=== PATIENT | female | born 2000 | race Caucasian/White ===

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

== ENCOUNTER 2021-05-21 09:14 | Outpatient (RCR) | payer OTHER, SELFPAY ==
--- NOTE | 2021-05-21 09:04 | BH.SGPN.GN ---
Behaviors/Verbalizations/Mental Status: []Client alert and oriented, casually dressed and groomed. Eye contact good. Motor activity appropriate. Speech within normal limits. Affect congruent, mood anxious and depressed. Thoughts linear, logical, no signs of hallucinations or delusions. Reviewed client?s symptom tracker, no risk for suicidal ideation, plan, or intent as of 05/21/21 Narrative Note: []Client first day of treatment. Responded well to session, attentive, providing supportive feedback and suggestions, and willing to process with group. Client reports feeling nervous about the group environment but is optimistic. Shared wanting to work on improving emotion regulation skills, better understanding her own mental health, and reducing anxiety. Discussed difficulties in feeling supported and understood by her supports. Appeared to benefit from group support and encouragement. Will continue IOP tx to prevent decompensation, improve mood stability, and promote healthy change behaviors.
--- NOTE | 2021-05-21 10:10 | BH.SGPN.GN ---
Behaviors/Verbalizations/Mental Status: [] Eye contact is good. Motor activity is appropriate. Appearance is casual. Speech is Appropriate. Mood is anxious. Affect is congruent. Thoughts are linear and logical. No evidence of psychosis. Client Response/Progress/Benefit: [] Pt was an active participant in group discussion and activity. Attentive during psychoeducation. Provided feedback and insight. Along with group members pt provided insight on definition and benefits of self-care. Benefits that the group was able to identify included; improves relationships, decreases anger and burnout, gives one a sense of identity, improves communication, increases awareness of values/needs, can rejuvenate oneself, helps one be more engaged, improves physical health, and can improve productivity. Pt participated in activity and was able to make connect between experiential group task and self-care. Group processed the activity and identified consequences of neglecting self-care which can include; hospitalization, suicide attempts, lose supports, and poor overall functioning. Benefited from group by increasing awareness of benefits to self-care and consequences of neglecting self-care. Will continue in IOP to prevent decompensation, increase healthy coping, and improve functioning to return to work. Narrative Note: []
--- NOTE | 2021-05-21 11:54 | BH.MDN_ITS ---
Multi-Disciplinary Note - Note 30-min Individual Time Started:: 11:10 Date: 05/21/21 Purpose of session/treatment goals addressed:: The purpose of this session was to gather information on client's current stressors, symptoms, and treatment goals. Another goal was to build rapport and provide psychoeducation on Borderline Personality Disorder. Eye Contact:: Good - tearful throughout discussion Motor Activity:: Appropriate Appearance:: Casual Speech:: Appropriate Mood:: Anxious, Depressed Affect:: Full Thoughts:: Linear, Logical, No evidence of hallucinations/delusions noted Staff Interventions:: Therapist used active listening and open-ended questions to explore client's current stressors, symptoms, history, and treatment goals. Therapist used strengths perspective to build rapport and aid client in identifying resilience factors. Therapist provided brief psychoeducation on Borderline Personality Disorder and the 5 symptom groups (unstable behavior, unstable emotions, unstable relationships, unstable sense of identity and awareness problems). Client Response:: Client responded well to session, open to meeting with therapist. Client reports enjoying group so far and finds the group environment to be supportive but shared struggling with some anxiety about sharing in the group environment. Discussed seeking IOP level of care following the recommendation of her outpatient psychiatrist due to limited improvements with traditional outpatient therapy. Client described not knowing exactly what her primary stressors are but that she has been struggling with her mental and physical health for much of her life. Recently received an MRI for chronic neck/muscle pain which was inconclusive and client reports has been an ongoing frustration. Notes first receiving counseling as a child and has been in counseling for the past 8 years, currently working with a therapist at [facility] in [place] and Dr. Polk through [place] [id number] for outpatient psychiatry. Denies remembering why she first went to counseling but has had issues with depression and anxiety for as long as she can remember. Described lifelong issues with poor self-esteem, relationship instability, difficulties managing her emotions, and feelings of numbness/disconnect. Shared recently receiving a diagnosis of Borderline Personality Disorder and has started to look up what this means but has little understanding of what this means. Receptive of s pending the remainder of session on psychoeducation about Borderline Personality Disorder and the reviewing the 5 common symptom groups (unstable behavior, unstable emotions, unstable relationships, unstable sense of identity and awareness problems). Client shared insights regarding which symptoms she most commonly relates to and how these have impacted her life/mental health. Receptive of further exploring each area and describing her own experiences/symptomology within each of the 5 groups. Risks/Concerns:: Client denies any active suicidal ideations, plan, or intent as of 05/21/21. Client does have a self-harming hx, though denies any recent self- harming behaviors or urges. Reports ability to maintain safety. Protective factors noted. Future oriented. Progress Toward Goals/Plan:: Client reports enjoying the IOP program so far and discussed connecting with materials she is learning. Engaging well in IOP tx, though reports anxiety about sharing personal information in group though is open to challenging herself to more openly engage. Client first day of IOP tx, so no significant progress noted. Client endorses depressive symptoms, mood swings, worthlessness, passive SI, difficulties connecting with others, crying spells, lack of purpose, and hopelessness. Anxiety issues include panic attacks, ruminating thoughts, fear of being alone or abandoned, and reassurance seeking within relationships. Client would like to work on improving her emotion regulation, relationship with self, learn coping skills, increase understanding of BPD, and better manage anxiety. Client will continue IOP tx to prevent decompensation, improve mood stability, and learn healthy coping skills. Time Stopped:: 11:45
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
--- NOTE | 2021-05-22 11:05 | BH.SGPN.GN ---
Behaviors/Verbalizations/Mental Status: []Eye contact is fair. Alert and oriented. Motor activity is appropriate. Appearance is casual. grooming is appropriate. Speech is Appropriate. Mood is anxious. Affect is congruent. Thoughts are linear and logical. No evidence of psychosis or hallucinations. Client Response/Progress/Benefit: []Client was engaged during discussion, did well to complete activity and process with the group. Client was willing to complete the worksheet in which she was challenged to develop a personal SMART goal. Client chose the goal to finish her book about borderline personality disorder. Client stated this will benefit her by helping her understand her new diagnosis better. Client identified her barriers which included: lack of motivation and the information from the book being too much to handle. Client receptive to identifying solutions for these barriers and willing to begin working on this goal. Benefited from this group by developing a short-term SMART goal related to mental health. Will continue IOP tx to improve emotion regulation, challenge negative thoughts and prevent decompensation. Narrative Note: []
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
--- NOTE | 2021-05-23 10:07 | BH.SGPN.GN ---
Behaviors/Verbalizations/Mental Status: []Client alert and oriented, casually dressed and groomed. Eye contact good. Motor activity appropriate. Speech within normal limits. Affect congruent, mood anxious and depressed. Thoughts linear, logical, no signs of hallucinations or delusions. Client Response/Progress/Benefit: []Pt was well engaged in group AEB taking notes, listening attentively, and providing input throughout. Attentive during psychoeducation and discussed the importance of goal-setting with the group. Pt indicated ?the more you recognize successes along the way the more likely you are to reach your end goal?, noting she personally struggles with accomplishing goals if she does not recognize small areas of progress. Group identified potential benefits of having goals include: they motivate, increase self-esteem, and are needed to have progress, help make changes when things aren?t working, create structure, and provide a sense of purpose. Group also worked together to identify barriers to goal-setting which included; negative self-talk, lack of direction, unrealistic or too broad of goals, and past negative experiences. Pt identified personal barrier to include not having a specific plan for working towards personal goals. Benefited from increased awareness of benefits and barriers to goal-setting. Pt will continue in IOP to prevent decompensation, learn healthy coping skills, and improve daily functioning. Narrative Note: []
[2021-05-23 10:45] VITALS: BP 146/95; PULSE 92
--- NOTE | 2021-05-23 11:05 | BH.SGPN.GN ---
Behaviors/Verbalizations/Mental Status: []Eye contact is fair. Alert and oriented. Motor activity is appropriate. Appearance is casual. grooming is appropriate. Speech is Appropriate. Mood is dysthymic. Affect is constricted. Thoughts are linear and logical. No evidence of psychosis or hallucinations. Client Response/Progress/Benefit: []Client was engaged during discussion, did well to complete activity and process with the group. Client was willing to complete the worksheet in which was challenged to develop a personal SMART goal. Client was able to create a short term goal that was mental health focused and focused on what would help improve social supports. Client worked on identifying potential barriers that could prevent her from accomplishing identified goal. Accepted feedback and support from others when identifying potential solutions to the barriers. Benefited from this group by developing a short-term SMART goal related to mental health. Will continue IOP tx to improve emotion regulation, improve interpersonal relationship skills and prevent decompensation.
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
--- NOTE | 2021-05-23 11:52 | BH.DR.ITP ---
Initial Treatment Plan Patient Information Visit Information: ADMISSION DATE: EXPECTED LOS: 4-6 weeks Problems/Symptoms Problem #1:: Depression Symptom:: Sadness, lack of motivation, hopelessness, passive thoughts of , fatigue, decreased concentration, low energy Problem #2:: Anxiety Symptom:: Worry, rumination, panic attacks
--- NOTE | 2021-05-25 09:00 | BH.SGPN.GN ---
Behaviors/Verbalizations/Mental Status: [] Eye contact is good. Motor activity is appropriate. Appearance is casual. Speech is Appropriate. Mood is depressed/irritable. Affect is congruent. Thoughts are linear and logical. No evidence of psychosis. Reviewed daily check in sheet and no reports of suicidal ideations or intent. Client Response/Progress/Benefit: [] Pt was an active participant in group discussion on positive psychology. Attentive. Provided appropriate feedback. Emotion for today is relieved. Symptom tracker noted 3/5 for depression, anxiety, panic, and irritability. Mental health win is staying on track. Utilized opposite action as she reports continued depression however desire to not attend IOP today however utilized opposite action. Reported several stressors today and is focusing and ruminating on the negatives and how bad certain events will be. Group provided feedback and pt was able to reframe which was beneficial. Reports being more depressed this week due to increased responsibilities with her job and IOP. Limited progress noted however is utilizing skills and can reframe when prompted. Benefited from group support, encouragement, and support. Will continue in IOP to maintain safety, increaser healthy coping, improve functioning to return to full-time job/school. Narrative Note: []
--- NOTE | 2021-05-25 10:03 | BH.SGPN.GN ---
Behaviors/Verbalizations/Mental Status: []Client alert and oriented, neatly dressed and groomed. Eye contact good. Motor activity restless. Speech within normal limits. Affect constricted, mood anxious. Thoughts linear, logical, no signs of hallucinations or delusions. Client Response/Progress/Benefit: []Client engaged in session AEB taking notes and contributing to discussion. Client shared connecting with the importance of setting boundaries, but shared that boundary setting is ?really hard for me because I really don?t know who I am.? Client shared she struggles with fear of abandonment and felt like ?I was always striving to please my parents.? Client assisted group with identifying benefits of setting boundaries such as improved relationships, reduced anxiety, and increased self-esteem. Listened during psychoeducation on different types of boundaries. Client seemed to benefit from increased awareness of how boundaries impact mental health and the different types of boundaries there are. Progress noted in client?s consistent attendance. Will continue IOP tx to prevent decompensation, improve emotional regulation skills, and improve functioning. Narrative Note: []
--- NOTE | 2021-05-25 11:12 | BH.SGPN.GN ---
Behaviors/Verbalizations/Mental Status: [] Client alert and oriented, casually dressed and appropriately groomed. Eye contact good. Motor activity appropriate. Speech within normal limits. Affect congruent, mood dysthymic, anxious. Thoughts linear and intact. no signs of delusions or hallucinations. Client Response/Progress/Benefit: [] Client responded well to session AEB listening attentively to peers and providing input throughout. Client completed the boundary self-assessment activity and processed within their small group, noted struggling with inconsistent boundaries in various areas of her life. Client was attentive and contributed during psychoeducation on the different boundary styles. Client stated that poor communication and difficulties in respecting other?s emotional boundaries via not trusting when they say things like ?I care about you? has caused relationship tension and increased conflict in the past. Participated in group discussion brainstorming various strategies for improving healthy personal boundaries. Client identified wanting to improve her communication and consistency of boundaries with supports. Shared this may help her to be more receptive of help and improve relationships in the past. Will continue IOP tx to continue to improve healthy coping mechanisms, improve mood stability, and prevent decompensation. Narrative Note: []
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
--- NOTE | 2021-06-01 09:00 | BH.SGPN.GN ---
Behaviors/Verbalizations/Mental Status: [] Eye contact is good. Motor activity is appropriate. Appearance is casual. Speech is Appropriate. Mood is depressed. Affect is flat. Thoughts are linear and logical. No evidence of psychosis. Reviewed daily check in sheet and no reports of suicidal ideations or intent. Client Response/Progress/Benefit: [] Pt was an active participant in group discussion. Attentive. Provided appropriate feedback. Daily symptom tracker notes 12/15 for depression and anxiety. Mental health win was showing up for IOP today. Reports that she is struggling with getting to IOP stating that her mood and motivation is erratic. Feels that she is not learning anything new and rather just wants a quick solution to her problems. Group challenged her thinking and encouraged patience. Pt reports that her BF continues to motivate her to come to IOP as he feels that it has made a difference. She discussed other psychosocial stressors and her challenges with taking action on her mental health. Believes that she knows all the skills and what to do however does not follow through when she is struggling. Progress noted in regards to insight and awareness. Beneifted from group support, encouragement, and feedback. Will continue in IOP to maintain safety, stabilize mood, and increase healthy coping skills. Narrative Note: []
--- NOTE | 2021-06-01 10:10 | BH.SGPN.GN ---
Behaviors/Verbalizations/Mental Status: []Client alert and oriented, casually dressed and groomed. Eye contact good. Motor activity appropriate. Speech within normal limits. Affect flat, mood dysthymic. Thoughts linear, logical, no signs of hallucinations or delusions. Client Response/Progress/Benefit: []Client responded well to session, attentive and participating in discussion. Participated in discussion of things that can keep people feeling trapped or stuck in life including; avoidance, self-doubt, unhealthy coping skills, inconsistent boundaries, and placing too much value on others? opinions. Group discussed the connection between thoughts, emotions, and behaviors as well as how negative thinking can keep a person stuck. Client attentive during psychoeducation on maintenance cycles. Client able to identify negative thoughts that have kept client stuck which included ?if I go back to work I?ll have a spiral, if I go to school I?ll fail and waste money, and I don?t know how to make friends.? Appeared to benefit from gaining awareness of how negative thoughts reinforce mental health symptoms and keep people stuck. Will continue IOP tx to prevent decompensation, increase emotional regulation skills, and combat distortions. Narrative Note: []
--- NOTE | 2021-06-01 11:12 | BH.SGPN.GN ---
Behaviors/Verbalizations/Mental Status: []Client alert and oriented, casually dressed and groomed. Eye contact good. Motor activity appropriate. Speech within normal limits. Affect congruent, mood anxious and dysthymic. Thoughts linear, logical, no signs of hallucinations or delusions. Client Response/Progress/Benefit: []Client responded well to session, contributing to discussion and providing supportive feedback. Client appeared to connect with maintenance cycles and recognized how negative thinking can keep a person stuck. Shared that negative thinking has prevented client from trusting in her own decision making skills and led to over-relying on others for reassurance in the past. Client identified a negative thought that has kept her stuck. Client's thought was I can?t handle going back to school because I don?t know what I want to do. Client able to connect how this thought maintains anxiety and depressive cycles, reinforces poor self-esteem, and increases resentment towards others. Client reported when she thinks this way, she ends up not putting herself out there and doesn?t make decisions for herself as a result. Client worked to reframe the thought by finding more rational, realistic ways to look at the thoughts and then processed within the small group setting. Shared she could instead try saying I have a general idea of what I like and can look into different classes exploring those things. Client shared this thought would improve mental health because it would help client feel more confident and accomplished as a result. Client appeared to benefit from practicing challenging negative thinking. Will continue IOP tx to maintain gains, continue to improve mood stability, and continue to improve thought challenging. Narrative Note: []
--- NOTE | 2021-06-05 09:05 | BH.SGPN.GN ---
Behaviors/Verbalizations/Mental Status: [] Eye contact is good. Motor activity is appropriate. Appearance is casual. Speech is Appropriate. Mood is depressed/irritable. Affect is congruent. Thoughts are linear and logical. No evidence of psychosis. Reviewed daily check in sheet and no reports of suicidal ideations or intent. Client Response/Progress/Benefit: [] Pt was an active participant in group discussion. Attentive. Provided appropriate feedback. Daily symptom tracker notes 4/5 for anxiety and 2/5 for depression. Emotion for today is frustrated. Identified several situational stressors which are impacting her mood and thoughts. Reports hard time letting things go. 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 This led to a discussion with parents in which she believed they were criticizing her for cancelling practice. Feel like I'm not making anyone happy. Crying spells. Reports that she freaked out on one occasion referred to a panic type attack. Struggling with utilizing skills consistently as she does not believe skills are effective. Limited progress noted. Difficulty time communicating needs to support. Beneifted from group support, encouragement, and feedback. Will continue in IOP to maintain safety, increase health coping skills, and prevent decompensation. Narrative Note: []
--- NOTE | 2021-06-05 10:10 | BH.SGPN.GN ---
Behaviors/Verbalizations/Mental Status: []Client alert and oriented, casually dressed and groomed. Eye contact good. Motor activity appropriate. Speech within normal limits. Affect congruent, mood euthymic. Thoughts linear, logical, no signs of hallucinations or delusions Client Response/Progress/Benefit: []Pt was an attentive participant and actively engaged throughout group discussion and activity. Attentive during psychoeducation and taking notes. Reflected connecting with topic of personal pitfalls and how they can impede mental health treatment progress. Pt and peers also discussed reasons why overcoming pitfalls is so challenging. Pt stated, ?I overthink everything, so I sometimes make things harder for myself.? During experiential activity pt along with peers identified several pitfalls from the activity that are also associated with mental health which included: lack of awareness, poor communication, wanting to give up, and emotional reactivity. Pt reported the activity helped her realize the importance of developing patience. Benefited from group by increasing awareness of pitfalls which can impact mental health. Pt will continue in IOP tx to promote emotional regulation skills, reduce negative thinking patterns, and improve distress tolerance skills. Narrative Note: []
--- NOTE | 2021-06-05 11:10 | BH.SGPN.GN ---
Behaviors/Verbalizations/Mental Status: []Client alert and oriented, casually dressed and groomed. Eye contact good. Motor activity appropriate. Speech within normal limits. Affect congruent, mood agitated and euthymic. Thoughts linear, logical, no signs of hallucinations or delusions. Client Response/Progress/Benefit: []Client receptive of session, engaged throughout AEB client actively participating in challenge activity, as well as listening and contributing to discussion. Taking notes throughout processing portions of session and reflected that the value she places on other?s opinions of her has continued to serve as a barrier in managing her own mental health symptoms. Shared this is something she has been struggling with for much of her life. Client completed worksheet identifying personal pitfalls impacting mental health progress. Client identified the following pitfalls: unhealthy support, communication, poor boundaries, negative self-talk, and giving up easily. Group discussed different coping skills to help manage or prevent from falling into pitfalls. Client expressed plans to work on challenging herself to take a step away from the problem when feeling overwhelmed rather than continuing to force herself to continue to be unnecessarily exposed something she?s overwhelmed by. Appeared to benefit from identifying personal pitfalls and strategies to overcome these pitfalls. Will continue IOP tx to prevent decompensation, improve consistent application of healthy coping skills, and maintain mood stability. Narrative Note: []
--- NOTE | 2021-06-06 09:05 | BH.SGPN.GN ---
Behaviors/Verbalizations/Mental Status: [] Pt eye contact good, casually dressed, motor activity appropriate, speech normal rate and tone, mood euthymic, congruent affect, thoughts linear and intact, no evidence of delusions or hallucinations. Reviewed client?s symptom tracker, no signs of suicidal ideation, plan, or intent as of today. Client Response/Progress/Benefit: []Pt responded well to session AEB by listening to others and sharing thoughts and feelings. Pt reported mental health positive as going to lunch with her best friend yesterday. Pt stated additional positives as completing apartment application. Pt reported she has been working on slowing down by not taking on too much. Pt reported stressor as wanting to figure out how to be less reactive. Pt stated she gets frustrated with herself when the littlest thing results in her being reactive. Seemed to benefit from input and support from others. Provided positive feedback to peers. Pt showing good insight but struggles with follow through of skills. Pt to continue IOP to improve emotional regulation, challenge distorted thoughts and prevent decompensation. Narrative Note: []
--- NOTE | 2021-06-06 10:16 | BH.SGPN.GN ---
Behaviors/Verbalizations/Mental Status: []Client alert and oriented, casually dressed and groomed. Eye contact good. Motor activity appropriate. Speech within normal limits. Affect congruent, mood euthymic. Thoughts linear, logical, no signs of hallucinations or delusions. Client Response/Progress/Benefit: []Pt was an active participant AEB taking notes and providing input throughout group discussion, as well as completed anger worksheet. Group worked together to define anger and discussed the ways anger can impact one internally and externally. Pt nodding in connection that anger can lead to damaged relationships if not expressed in healthy ways, discussed that unhealthy anger expressions have caused tension in her relationship with her mother on various occasions. Completed the iceberg exercise and identified emotions that tend to ?live under the surface? of pt?s own anger include: mistrust, loss of control, feeling over-stimulated, pain, being wrong, loneliness, and feeling vulnerable. Pt also gained awareness of their typical responses to anger which included: shutting down, crying, avoiding and isolating, self-harming, and getting more defensive. Benefited from group by increasing understanding of the impact of anger on mental health. Recommended continued tx to continue to improve emotion regulation skills, prevent decompensation, and continue to promote healthy communication with her supports. Narrative Note: []
--- NOTE | 2021-06-06 11:20 | BH.SGPN.GN ---
Behaviors/Verbalizations/Mental Status: []Client alert and oriented, casually dressed and groomed. Eye contact good. Motor activity appropriate. Speech within normal limits. Affect congruent, mood euthymic. Thoughts linear, logical, no signs of hallucinations or delusions. Client Response/Progress/Benefit: []Pt was engaged throughout AEB participating in discussion and taking notes. Pt did well to lead his group using assertive communication and receiving feedback. Contributed as group brainstormed healthy coping skills for better managing anger which included: deep breathing, counting, exercise, DDD, and earthing. Pt also gained awareness of costs of unmanaged anger. Pt reported she has gained awareness that feeling unprepared and impatience often leads to anger for pt. Pt appeared to benefit from identifying different techniques to manage anger as well as gaining awareness of the costs of anger. Pt selected earthing to better manage anger. Will continue IOP tx to increase application of healthy coping skills and further improve distress tolerance skills. Narrative Note: []
--- NOTE | 2021-06-08 09:00 | BH.SGPN.GN ---
Behaviors/Verbalizations/Mental Status: [] Eye contact is good. Motor activity is appropriate. Appearance is casual. Speech is Appropriate. Mood is depressed. Affect is flat. Thoughts are linear and logical. No evidence of psychosis. Reviewed daily check in sheet and no reports of suicidal ideations or intent. Client Response/Progress/Benefit: [] Pt was an active participant in group discussion. Attentive. Daily symptom tracker notes 01/15 for anxiety. Emotion for today is feeling down. Mental health wins were reported to be self-care and setting boundaries. She reports that she cried and freaked out yesterday and shared this was related to a trauma trigger. She discussed her trauma with the group who was supportive provided empathy and feedback. Often blames herself for her past trauma which impacts current mental health. Benefited from group support, encouragement, and feedback. Will continue in IOP to prevent decompensation, increase healthy coping, and to improve functioning to return to work. Narrative Note: []
--- NOTE | 2021-06-08 10:05 | BH.SGPN.GN ---
Behaviors/Verbalizations/Mental Status: []Eye contact is good. Motor activity is appropriate. Appearance is casual. Speech is Appropriate. Mood is agitated. Affect is constricted. Thoughts are linear and logical. No evidence of psychosis. Client Response/Progress/Benefit: []Pt was an active participant in group discussion AEB taking notes and providing input throughout. Attentive during psychoeducation reviewing internal and external obstacles and provided examples throughout. Participated in the reflection activity in which clients tio pictures depicting their current and desired reality and shared with the group. Pt described her current reality as ?not knowing how to let go of fear.? Pt reports her desired reality is feeling calm, having a purpose, and knowing her importance. Pt also reflected on strengths she has that will help pt get to her desired reality such as self-awareness. Benefited from group by increasing current awareness and expectations for progress. Will continue IOP tx to increase application of healthy coping skills and to create health habits that will help pt create positive core beliefs. Narrative Note: []
--- NOTE | 2021-06-08 11:10 | BH.SGPN.GN ---
Behaviors/Verbalizations/Mental Status: []Client alert and oriented, casually dressed and groomed. Eye contact good. Motor activity appropriate. Speech within normal limits. Affect congruent. Mood anxious. Thoughts linear, logical, no signs of hallucinations or delusions. Client Response/Progress/Benefit: []Client engaged during activity and provided ideas on how to cope with internal barriers that keep clients stuck from moving towards goals. Client identified personal barriers to desire reality include: not letting go of emotions, allow others emotions to impact her own emotions, being afraid to let herself heal, and not able to identify what she needs to do to get better. Benefited from group by identifying obstacles and solutions to desired reality. Will continue IOP tx to prevent decompensation, improve emotion regulation and challenge distorted thoughts. Narrative Note: []
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
--- NOTE | 2021-06-11 09:05 | BH.SGPN.GN ---
Behaviors/Verbalizations/Mental Status: [] Eye contact is good. Motor activity is appropriate. Appearance is casual. Speech is Appropriate. Mood is anxious/irritable. Affect is congruent. Thoughts are linear and logical. No evidence of psychosis. Reviewed daily check in sheet and no reports of suicidal ideations or intent. Client Response/Progress/Benefit: [] Pt was an active participant in group discussion. Attentive. Provided appropriate feedback. Daily symptom tracker notes 12/15 for depression and anxiety. Emotion for today is worried,confused,frustrated. Shared several psychosocial stressors including decision on returning to work and moving into an apartment with BF. Mental health wins include utilizing opposite action and working through a very chaotic feelings and emotion over the weekend. She is ruminating on several situational stressors and conflict with parents. Reports inconsistent work in the past due in large part to her mental health. Insight and awareness of how work impacts mental health. She appears motivated to obtain a more consistent job however believes that due to her past she is destined to fail. Group challenged and reframed this thought. Group offered feedback and suggestions. Benefited from group support, encouragement, and feedback. Will continue in [facility] to maintain safety, increase healthy coping, and prevent decompensation. Narrative Note: []
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
--- NOTE | 2021-06-11 11:20 | BH.SGPN.GN ---
Behaviors/Verbalizations/Mental Status: []Client alert and oriented, casually dressed and groomed. Eye contact fair. Motor activity WNL. Speech within normal limits. Affect congurent, mood dysthymic. Thoughts linear, logical, no signs of hallucinations or delusions. Client Response/Progress/Benefit: []Client engaged in session AEB client listening attentively to peers and providing input. Attentive during psychoeducation on 4 zones of regulation (blue, green, yellow and red). Client able to identify feelings and behaviors for each zone. Client identified coping skills one can use to support self in each zone. Client stated belief that she jumps from one zone to another. Client stated this results in her constantly being dysregulated and difficulty being productive. Benefited from increased education on zones of regulation or stages of alertness for emotions and healthy coping skills to use for each zone. Will continue IOP tx to improve emotion regulation, improve daily functioning and prevent decompensation.
== END 2021-06-12 23:59 ==
LOC: BHIOP 09:14
PROVIDERS: PCP Pediatrics; Visit Provider Psychiatry & Neurology Psychiatry
DX: F33.2 Major depressive disorder, recurrent severe without psychotic features (principal); F34.1 Dysthymic disorder; F60.3 Borderline personality disorder; F43.10 Post-traumatic stress disorder, unspecified; G47.419 Narcolepsy without cataplexy; Z79.899 Other long term (current) drug therapy
CPT/HCPCS: S9480; 90832; 90834; 90837; 90853

== ENCOUNTER 2021-06-13 08:25 | Outpatient (RCR) | payer OTHER, SELFPAY ==
[2021-06-13 00:43] VITALS: BP 146/95; PULSE 92
--- NOTE | 2021-06-13 09:00 | BH.SGPN.GN ---
Behaviors/Verbalizations/Mental Status: []Eye contact is good. Motor activity is appropriate. Appearance is casual. Speech is Appropriate. Mood is anxious. Affect is congruent. Thoughts are linear and logical. No evidence of psychosis. Reviewed daily check in sheet and no reports of suicidal ideations or intent. Client Response/Progress/Benefit: []Pt responded well to session AEB pt listening attentively to other and sharing thoughts with group. Pt indicatesd3/5 for depression on symptom tracker which is the same as on Friday of this week. Pt indicated slight increase in anxiety from a 3/5 on Friday to a 4/5 today. 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 Pt stated uncertainty if the position would be good for her since she doesn't like crowds and loud noises. Pt indicated slight decrease in agitation and decrease in self-harm behaviors. Pt reporting her ability to function has improved. Pt to continue IOP to continue use of healthy coping, improve emotional regulation and prevent decompensation. Narrative Note: []
--- NOTE | 2021-06-13 10:10 | BH.SGPN.GN ---
Behaviors/Verbalizations/Mental Status: [] Eye contact is good. Motor activity is appropriate. Appearance is casual. Speech is Appropriate. Mood is anxious/irritable. Affect is congruent. Thoughts are linear and logical. No evidence of psychosis. Client Response/Progress/Benefit: [] Pt was an active participant in group discussion and activity. Attentive during psychoeducation on coping skills. Pt along with peers worked together to identify unhealthy coping skills such as; avoidance, sleep, substances, isolation, shopping, self-sabotage, not taking prescribed medications, and self-harm. Group was able to identify why people use unhealthy coping skills such as; easy, comfortable, work in the short-term, perceive them as quick fix, and its harder to use healthy coping skills. Pt was able to make connection between the activity (tower building) and the importance of having a strong base/foundation of both internal and external coping skills. Benefited from increased understanding of unhealthy coping skills and the need for developing healthy interna and external coping skills. Pt will continue in IOP to prevent decompensation, increase health coping and decision-making skills, and improve functioning to return to work. Narrative Note: []
--- NOTE | 2021-06-13 11:10 | BH.SGPN.GN ---
Behaviors/Verbalizations/Mental Status: []Client alert and oriented, casually dressed and groomed. Eye contact good. Motor activity restless. Speech within normal limits. Affect constricted, mood agitated. Thoughts linear, logical, no signs of hallucinations or delusions. Client Response/Progress/Benefit: []Client responded well to session, taking notes and contributing throughout. Group discussed the different categories of coping skills which included distraction, emotional release, grounding, self-love, and thought challenging. Client participated in creating a coping skills ?menu? from the five categories of coping skills. Client's coping skill menu included: painting, laughing, journaling, setting boundaries to promote body positivity, and looking at the evidence against her thoughts. Appeared to benefit from increasing repertoire of healthy coping skills. Will continue tx to help client regulate emotions and improve distress tolerance skills. Narrative Note: []
--- NOTE | 2021-06-15 09:04 | BH.SGPN.GN ---
Behaviors/Verbalizations/Mental Status: Client alert and oriented, casual dress. Eye contact good. Motor activity appropriate. Speech within normal limits. Affect congruent, mood euthymic. Thoughts linear, logical, no signs of hallucinations or delusions. Reviewed client?s symptom tracker, no signs of suicidal ideation, plan, or intent as of today. Client Response/Progress/Benefit: Client participated well during group, was attentive and engaged throughout. Client reported her emotion for the day was happy, but with a sense of impending doom. Clinician and group provided insight and normalized this feeling. Client reported stressors of being offered a new job, but being unsure of accepting it, as well as moving into an apartment with her boyfriend. Client utilized insight and discussed using thought challenging to combat negative thoughts, which client identified as a win. Client seemed to benefit from supportive group environment. Client?s goal is to practice communicating to herself her feelings using a mood tracker, which she will discuss further with her individual counselor. Will continue IOP tx to promote healthy coping skill application, improve mood stability, and prevent decompensation . Narrative Note: []
--- NOTE | 2021-06-15 11:15 | BH.SGPN.GN ---
Behaviors/Verbalizations/Mental Status: []Client alert and oriented, casually dressed and groomed. Eye contact good. Motor activity appropriate. Speech rapid and interrupting at times. Affect congruent, mood euthymic. Thoughts linear, logical, no signs of hallucinations or delusions. Client Response/Progress/Benefit: []Client was an active participant in group discussion and providing good insight to peers. Reviewed safety behaviors she engages in that reinforce anxiety. Attentive during psychoeducation on mindfulness coping skills and their impact on mental health wellness. The group worked together to brainstorm anxiety reduction strategies. Client shared she uses a lot of mindfulness, especially around bedtime. Client shared several mindfulness apps with peers which was helpful. Client reports she will use her meditation brock for five minutes each day over the weekend. Client seemed to benefit from increased repertoire of anxiety reduction skills. Client will continue IOP tx to increase self-compassion and self-assurance while helping client function. Narrative Note: []
--- NOTE | 2021-06-15 14:03 | BH.TPR ---
Treatment Plan Review Date of Admission:: 05/21/21 Date of Treatment Plan Review:: 06/15/21 Admitting Diagnoses:: 1. Major depressive disorder, recurrent, severe without psychosis. 2. Dysthymia (F 34.1). 3. Borderline personality disorder. 4. PTSD Current Diagnoses:: 1. Major depressive disorder, recurrent, severe without psychosis. 2. Dysthymia (F 34.1). 3. Borderline personality disorder. 4. PTSD Patient's Response to Treatment:: Pt was initially very hesitant about group counseling and unsure about continuing the IOP program following her first week; however, however after discussing her initial hesitation during the first week has responded well. Pt consistently attends all scheduled groups or calls to reschedule if needed. During group and individual sessions, pt remains present and engaged, provides appropriate feedback, and often connects the materials reviewed to her own life. Reports that she is improving on her ability to utilize skills learned in IOP outside group as well, though continues to struggle with consistency in this area. Pt completes all homework provided and has remained medication compliant throughout tx admission. Status of Current Problems and Symptoms: Pt completed her 4 week DSM cross-cutting outcome scales which show an overall symptom reduction of 18% from admission. Her scores on the depression scale reduced by 17% and her anxiety scale showed a 27% reduction. OCD symptoms, such as feeling driven to perform certain tasks, displayed an overall score decrease by about0 40%. SI frequency has stayed the same, though pt scores on daily sx tracker remain 0/5 on average for SI. Last week she reported taking several steps to improve overall independence by moving into her own apartment and beginning a new job. Pt reports these are stressors but positives. She does however continue to struggle with in the moment distress tolerance and at times becomes irritable, shuts down, or is more panicky when facing increased situational stress Problem #1 Problem Name:: Depression/isolation/hopelessness Status of Goals:: Partially Complete, further progress needed. Obj1- Pt reports she is trying to identify and challenge negative and distorted thoughts and use more self-compassionate language with herself. Reports she often struggles to do so when feeling she is not meeting other?s expectations of her, is stressed, or when faced with setbacks. 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 Struggles with healthy communication with supports at times which reinforces self-doubt, negative self-talk, and unrealistic expectations. Team Recommendations:: Continue to work on emotion regulation as she continues to be reactive based on situational stressors. Set up and encourage dbt treatment. Continue with current treatment plan and promote more active use of thought challenging skills. Problem #2 Problem Name:: Anxiety Status of Goals:: ob1- Pt is able to identify calming skills learned in group however struggles with implementing these skills consistently when in overwhelming situations. Able to take breaks as needed but continues to struggle with using calming skills to continue to encourage herself to work through anxiety provoking or stressful situations rather than give up. Can identify triggers as well. Obj2- Pt has seen an overall 27% Reduction in anxiety per self-report and DSM5 scores. Recommended continued tx to further promote gains. Team Recommendations:: Continue with current plan
--- NOTE | 2021-06-20 08:57 | BH.SGPN.GN ---
Behaviors/Verbalizations/Mental Status: []Client alert and oriented, casually dressed and groomed. Eye contact good, tearful at times when discussing stressors. Motor activity appropriate. Speech within normal limits. Affect congruent, mood agitated, dysthymic, anxious. Thoughts linear, logical, at times appearing racing in nature. No signs of hallucinations or delusions. Reviewed client?s symptom tracker, no risk for suicidal ideation, plan, or intent as of 06/20/21 Client Response/Progress/Benefit: []Client responded well to session, attentive and willing to process with group. Client reports feeling ?overwhelmed? today and attributes this primarily to increased stress and difficulties in adjusting to several new changes in her life. Shared beginning a new job yesterday which was a positive but also a stressor for her. Client notes doing well to manage her emotions and complete the first day of the job despite feeling overwhelmed at times. Expressed feeling she may have taken on more than she can handle as she also bought a new car and is planning on moving this week. Struggled with disqualifying her areas of progress and noted ?I think I?m just letting my emotions take over right now?. Client receptive of and appeared to benefit from group participants normalizing her emotions and providing supportive feedback and encouragement. Continues to struggle with distress tolerance and coping with changes. Recommended continued IOP tx to further improve distress tolerance and emotion regulation, improve use of internal coping skills, and prevent decompensation. Narrative Note: []
--- NOTE | 2021-06-20 11:09 | BH.MDN_ITS ---
Multi-Disciplinary Note - Note 45-min Individual Time Started:: 10:10 Date: 06/20/21 Purpose of session/treatment goals addressed:: Goal was to address treatment goal #2 by aiding client in using calming and healthy decision making skills to address recent stressors and changes in routine which are impacting overall mood stability. Eye Contact:: Good - tearful at times when discussing current stressors Motor Activity:: Appropriate Appearance:: Casual Speech:: Appropriate Mood:: Anxious, Dysthymic Affect:: Full Thoughts:: Linear, Logical, No evidence of hallucinations/delusions noted Staff Interventions:: thought challenging - Challenged cognitive distortions and perspective of recent changes and attempted to reframe into an opportunity for growth, motivational interviewing - to elicit change behaviors as well as identify and address barriers, psychoeducation on: - eustress vs. distress, strengths perspective, taught coping skills - reviewed decisional balance technique Client Response:: Pt receptive of session, engaged throughout. She reports feeling emotionally overwhelmed and is experiencing feelings of defeat, exhaustion, and anxiety/fear. Reports that she has recently made several big decisions which has resulted in a lot of new changes in her life. 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 Client able to identify that the amount of change has her feeling more stressed out and beginning to question whether she has taken on too much at once. Shared not knowing if she is truly taking on too much or if she is reacting based on emotions due to feeling overwhelmed that all of these changes began in the same week. Shared that following her first day at the new job she is already feeling as though she wants to quit. Indicated ?the job really wasn?t that bad but I really think I was trying to live up to everyone else?s expectations of what they want for me and not considering what I really want for myself?. Therapist challenged client reminding her that she had been excited about the job last week and indicated looking forward to working again. Receptive of thought challenging and discussed client patterns of making decisions based primarily on her emotion in the moment. Client receptive of reviewing the DBT technique of [employer]. Able to identify the emotions driving her to impulsively decide to quit her new job following one day in which she felt stressed and overwhelmed. Identified the logical or rational factors contributing to her increased stress which included a disrupted routine, lack of sleep, and fear that beginning a new job means she will have to end IOP tx early. Did well to work with therapist to identify and challenge distorted thinking patterns associated. Client indicated ?I think I just need to take some time to calm down and focus on something else outside of my stressors and then come back and decide what I want to do?. Able to identify self-care activities she can engage in today such as a hot shower and reading to ?reset myself?. Noted plans to complete a decision balance sheet regarding maintaining current commitments or identifying a commitment (i.e. her new job) she may want to cut out to help maintain stability at this time. Risks/Concerns:: No risks or concerns at this time, Client denies and SI, plan or intent as of 06/20/21. Progress Toward Goals/Plan:: Recent reported regression in ability to manage emotions and increased anxiety as a result of multiple stressors, including beginning a new job. However, despite recent regression, client overall is benefiting from the program. Increased insight and awareness per pt as well as in client ability to identify self-sabotaging urges, irrational thinking patterns, and areas in which she is making progress. Primary challenge and stressor is client need for reassurance in decision making and ability to consistently use internal coping skills to improve overall independent living skills and emotion regulation. Several changes recently including new car, moving, and beginning a new job which client recognizes as increasing her anxiety and may be reinforcing urges to react impulsively based on emotion. Continues to report utilizing skills for calming herself and making healthy decisions, which we reviewed. Encouraged to utilize self-care and be aware of mood prior to acting. Plan is to continue in IOP to continue to improve mood stability, increase healthy coping, and prevent decompensation. Time Stopped:: 10:55
--- NOTE | 2021-06-20 11:15 | BH.SGPN.GN ---
Behaviors/Verbalizations/Mental Status: []Client alert and oriented, casually dressed, hygiene appeared to be tended to. Eye contact good. Motor activity appropriate. Speech within normal limits. Affect constricted, mood anxious and dysthymic. Thoughts linear, logical, no signs of hallucinations or delusions. Client Response/Progress/Benefit: []Client engaged participant AEB pt provided some input during small group discussion, taking notes and listening attentively to others. Group brainstormed strategies to combat social and perceived stigma which included: educating others, no longer using negative language about mental illness, being open about mental health, and not reinforcing stigma with behaviors or labels. 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 Appeared to benefit from increasing awareness of strategies to combat stigma. Will continue IOP tx to continue use of healthy coping, improve emotion regulation and prevent decompensation. Narrative Note: []
--- NOTE | 2021-06-21 09:05 | BH.SGPN.GN ---
Behaviors/Verbalizations/Mental Status: [] Eye contact is good. Motor activity is appropriate. Appearance is casual. Speech is Appropriate. Mood is anxious. Affect is depressed/irritable. Thoughts are linear and logical. No evidence of psychosis. Reviewed daily check in sheet and no reports of suicidal ideations or intent. Client Response/Progress/Benefit: [] Pt was an active participant in group discussion. Attentive. Provided appropriate feedback. Daily symptom tracker notes 3/5 for anxiety and 2/5 for depression. Emotion for today is overwhelmed. Mental health wins included using [employer] to make a decision regarding her new job, which she decided to quit. She stated I continue to put myself in situations that cause me to get overwhelmed. 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 Did not elaborate on the stressors of the job (she was only there 1 day) however believes that this decision will benefit her mental health. Group was supportive however did challenge her. Progress noted per pt report. Benefited from group support, encouragement, and feedback. Will continue in IOP to maintain safety, prevent decompensation, and improve functioning. Narrative Note: []
--- NOTE | 2021-06-21 11:12 | BH.SGPN.GN ---
Behaviors/Verbalizations/Mental Status: []Client alert and oriented, casually dressed and appropriately groomed. Eye contact fair. Motor activity appropriate. Speech within normal limits. Affect constricted, mood dysthymic. Thoughts linear, logical, no signs of hallucinations or delusions. Client Response/Progress/Benefit: []Client was an active participant AEB providing input throughout discussion and listened attentively to others. Connected with group topic of perspective and the impacts of one?s perspective on mental health. Client worked with the group to identify impact of a negative perspective which included: all or nothing thinking, increased negative self-talk, and hurts relationships. Client reported I am the negative person which she recognizes has impacted relationships in the past. Client stated she has been told by others that she is too negative to be around. Client appeared to benefit from increasing understanding of mental health benefits of a positive perspective and potential consequences to progress when perspective is negative. Progress noted with increased insight into how her perspective and behavior negatively impacts relationships. Client is to continue IOP to increase consistent use of healthy coping, challenge distorted thoughts and prevent decompensation.
--- NOTE | 2021-06-27 10:15 | BH.SGPN.GN ---
Behaviors/Verbalizations/Mental Status: []Client alert and oriented, casually dressed and groomed. Eye contact good. Motor activity restless. Speech within normal limits. Affect constricted, mood irritable. Thoughts linear, logical, no signs of hallucinations or delusions. Client Response/Progress/Benefit: []Pt was an engaged participant in group discussion, providing input and was attentive during psychoeducation. Participated in short activity about automatic thoughts and shared that mood and past experiences can impact automatic thoughts. Group was primarily educational; therapist introduced and gave examples of the 10 cognitive distortions. Benefited from education and increased awareness of cognitive distortions and role that they play in negative thoughts and emotions. Pt reported connecting with all or nothing thinking and mental filter. Shared ?all or nothing thinking is me?I have a hard time thinking in [place].? Pt also shared that she has to work on not mental filtering in her current relationship and remind herself why the relationship is healthy. Will continue IOP tx to further improve daily functioning, reduce negative thinking patterns, and establish aftercare. Narrative Note: []
--- NOTE | 2021-06-27 11:18 | BH.SGPN.GN ---
Behaviors/Verbalizations/Mental Status: []Eye contact is good. Motor activity is appropriate. Appearance is casual. Speech is Appropriate. Mood is euthymic. Affect is congruent. Thoughts are linear and logical. No evidence of psychosis. Client Response/Progress/Benefit: []Pt was an active participant, taking notes and providing input throughout group discussion and activity. Attentive during psychoeducation on cognitive distortions not discussed in previous group and provided several examples of distortions reviewed. Noted struggling particularly with distortion of ?should and must? thoughts. Pt was an active participant in Cognitive Distortions Jeopardy, providing input and suggestions to small group, as well as working with peers to identify correct answers throughout. Engaged in game as patient utilized notes from psychoeducation on cognitive distortions as well as conversed with peers to answer questions. Able to practice re-framing cognitive distortions with peers to obtain points for the game. Expressed struggling with personalization when getting a question incorrect and used reframing skills in the moment to challenge this. Experiential activity was beneficial as it provided a way for patient to review notes and handouts during psychoeducation to answer questions for the game. Will continue in [facility] tx to further improve mood stability and application of distress tolerance skills, increase healthy communication with supports, and improve emotion regulation. Narrative Note: []
--- NOTE | 2021-07-04 09:05 | BH.SGPN.GN ---
Behaviors/Verbalizations/Mental Status: []Client alert and oriented, neatly dressed and groomed. Eye contact fair. Motor activity appropriate. Speech within normal limits. Affect congruent to topics being discussed, mood anxious. Thoughts linear, logical, no signs of hallucinations or delusions. Reviewed client?s symptom tracker, no risk for suicidal ideation, plan, or intent as of 07/04/21 Client Response/Progress/Benefit: C[]Client responded well to session, receptive to feedback and providing support. Client shared I've been kind of bad lately but after processing her stressors and emotions with group, client identified her mood as hopeful this morning. Client acknowledges that she struggles with giving herself credit and seeing progress, so when she had a tough emotional day yesterday, client felt like she has not made any progress. Crime Lab Analyst helped client challenge this and client was able to see how she has improved since starting IOP. Client also gained awareness of how her expectations for progress have impacted her outlook and overall mood. Client did identify setting a boundary with a family member as significant progress. Appeared to benefit from challenging negative thoughts in the moment. Will continue IOP tx and discharge later this week. Can benefit from one more IOP day to reinforce healthy coping skills and challenge self-doubt. Narrative Note: []
--- NOTE | 2021-07-04 10:15 | BH.SGPN.GN ---
Behaviors/Verbalizations/Mental Status: [] Eye contact is good. Motor activity is appropriate. Appearance is casual. Speech is Appropriate. Mood is euthymic. Affect is full. Thoughts are linear and logical. No evidence of psychosis. Client Response/Progress/Benefit: [] Pt was an active participant in group discussion and activity. Attentive during psychoeducation on fixed mindset and fixed thinking. Participated with her group in experiential activity which initially seemed impossible however worked with peers to come up alternative solutions while practicing the skills at looking at obstacle with growth mindset. Completed worksheet in which she identified common fixed thoughts she has which included; When I try I can't do it, If I don't finish college I won't be successful, I can't handle working, People are going to leave me b/c I'm too much. Benefited from increased awareness of fixed thinking. Will continue in IOP to maintain safety, increase healthy coping, and maintain gains. Narrative Note: []
--- NOTE | 2021-07-04 11:10 | BH.SGPN.GN ---
Behaviors/Verbalizations/Mental Status: []Client alert and oriented, casually dressed and groomed. Eye contact good. Motor activity appropriate. Speech within normal limits. Affect congruent. mood euthymic. Thoughts linear, logical, no signs of hallucinations or delusions. Client Response/Progress/Benefit: []Client engaged during activity and discussion AEB providing input and supportive feedback, as well as taking notes throughout. Client did well to engage as group worked on identifying characteristics and benefits of adopting a growth mindset. Worked with fellow participants in reframing the example fixed thoughts into growth mindset thoughts, providing several suggestions throughout. Client worked in small group to apply skills learned to reframe own personal fixed thoughts. Reframed personal fixed thought of ?It?s not a meaningful if I don?t have a regular job? with growth mindset thought of ?It?s okay if things don?t fit the normal mold. It?s important that I?m pursuing what I enjoy and am doing it for me rather than to meet anyone else?s expectations?. Noted that this would aid in reducing stress and anxiety as she will feel less pressured to impress everyone else. Additionally, identified that focusing on her reframed thought may help her to feel more confident in her own decisions rather than continue to seek reassurance from others before making decisions. Benefitted from discussing benefits of growth mindset and brainstorming strategies for prompting growth-mindset. Will continue IOP tx to continue to promote active thought challenging and skill application, maintain stability, as well as continue to improve emotion regulation. Narrative Note: []
--- NOTE | 2021-07-06 09:51 | BH.MDN ---
Multi-Disciplinary Note - Note 45-min Individual Time Started:: 08:46 Date: 07/06/21 Purpose of session/treatment goals addressed:: Reviewed progress on treatment plan in IOP. Discussed current stressors and strategies for coping/better managing emotions associated. Finalized aftercare plans and reviewed outcome measurement. Eye Contact:: Good Motor Activity:: Appropriate Appearance:: Casual Speech:: Appropriate Mood:: Dysthymic Affect:: Full, Congruent Thoughts:: Linear, Logical, No evidence of hallucinations/delusions noted Staff Interventions:: thought challenging, CBT techniques, discharge planning, strengths perspective, reviewed DSM-5, other - reviewed Dialectical thinking and healthy communication skills Client Response:: Pt receptive of session, engaged and willing to process progress, continued stressors, and aftercare plans with this therapist. Discussed struggling with increased feelings of depression over the past week and attributes this to the colder weather, as well as increased isolation and reduced time spent on self-care. Pt noted enjoying living in an apartment with her boyfriend but is still adjusting to not always having family around. Noted this may be contributing to isolated feelings as she struggles to reach out to friends as well. Discussed not spending as much time on self-care activities she finds enjoyable either and indicated that the colder weather often leads to reduced motivation. Receptive of reviewing strategies for improving self-care, reducing isolation, and improving communication with her boyfriend to help support her mental health needs as well. Pt identified plans to discuss scheduling regular times to talk about their mental health and personal needs. Pt noted she did visit her mother yesterday and felt less lonely as a result. Reports plans to have regular dates with her mother moving forward. Reviewed progress in IOP and on treatment plan goals. Pt initially struggled to identify progress as she noted ?it?s hard when I?m struggling right now?. Continues to struggle with viewing progress based on situational stressors. With assistance was able to identify progress in improved emotion regulation, independent decision making, improved thought challenging, and increased mindfulness skills which pt reports has attributed to reduced irritability. According to DSM outcome measurement pt showed an overall symptom decrease of 41% since admission. Pt had some decreased motivation this week and reports that she was able to utilize emotion regulation skills as well as healthy coping skills. Reports increased awareness of the need for self-care however admits that she does not complete self-care as often as she would like. Client has made a 100% reduction in self-harming urges since admission. Risks/Concerns:: None noted. Pt denies any SI, plan, or intent as of this date. Progress Toward Goals/Plan:: Progress noted. Pt has met treatment plan goals as noted above. DSM outcome measurements show a 41% decrease in overall symptoms since admission. DSM also shows a 36% reduction in scores on anxiety scale, 67% reduction on score in anger scale, and a 100% reduction on scores regarding self-harming urges. Pt self-reports improved mood stability, increased independent decision making, improved communication with supports, reduced stress, and decrease in irritability. Reports increased awareness and insight on health coping skills. Plan is to discharge as pt no longer meets criteria for IOP level of care. Will continue with outpatient therapy and medication management through [facility]. Time Stopped:: 09:26
--- NOTE | 2021-07-06 10:13 | BH.SGPN.GN ---
Behaviors/Verbalizations/Mental Status: [] Client alert and oriented, casually dressed and groomed. Eye contact good. Motor activity appropriate. Speech within normal limits. Affect congruent and full, mood euthymic. Thoughts linear, logical, no signs of hallucinations or delusions. Client Response/Progress/Benefit: [] Client active participant AEB providing contributions during group discussion, taking notes, and appeared to listen attentively to peers. Client connected with the topic of relationships. Helped group discuss the benefits of relationships as well as the potential factors maintaining unhealthy relationships. Client stated that ?Healthy relationships allow us to go after what inspires and makes us happy without fear of them no longer wanting to be a part of our life. It?s unconditional acceptance?. Went on to indicate ?You can?t love others to the detriment of yourself?. Helped group identify the risk factors for unhealthy relationships which included: poor self-esteem, trauma, loneliness, learned behaviors, and not taking care of own mental health. Worked with group to develop a list of the consequences that unhealthy relationships have on mental health. Appeared to benefit from increasing awareness of the impact unhealthy relationships can have on mental health. Pt to discharge from [facility] tx on this date as she has met all tx goals. Narrative Note: []
--- NOTE | 2021-07-06 11:15 | BH.SGPN.GN ---
Behaviors/Verbalizations/Mental Status: []Client alert and oriented, casually dressed and groomed. Eye contact good. Motor activity appropriate. Speech within normal limits. Affect congruent, mood euthymic. Thoughts linear, logical, no signs of hallucinations or delusions. Client Response/Progress/Benefit: []Client responded well to session, engaged and taking notes. Attentive during psychoeducation about characteristics of healthy, unhealthy and abusive relationships. Client identified within her relationship both herself and partner do well with recognizing each others emotional needs. Client stated she wants to work on being okay when he wants to spend time with others. Client recognized she sometimes demands too much of her partner's time and needs to allow him to have his own space. Appeared to benefit from brainstorming strategies to build healthier relationships. Client has made significant treatment progress and will discharge from [facility] today. Narrative Note: []
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
--- NOTE | 2021-07-06 14:46 | BH.AFTERPLAN ---
Aftercare Plan - Demographics Treatment End Date:: 07/06/21 Psychiatrist:: Tila Chen Psychiatrist Office #:: [id number] [facility] Therapist:: Miladis Barcenas Therapist Phone #:: [phone] - Plan Details Progress/Aftercare Plan Details:: You have made progress in improving your overall ability to make your own mental health needs a priority and not waiting to do something about them until it reaches point of crisis. Taking time to seek treatment has allowed you the opportunity to reflect on what you truly need and begin taking the steps to acquire the supportive resources necessary. This has included setting boundaries with yourself in terms of not taking on more than you are capable of, removing toxic people from your life, and working on expanding your social support net. Keep this up! You have taken steps to challenge your initial worries about not living up to someone else?s expectations or stressing someone else out and have instead focused on making decisions for yourself because they are the right fit for you and NOT because someone else told you it?s what you ?should? be doing. Challenging the urge to try and meet other?s expectations and not disappoint can lead to not living authentically for yourself. I?m so glad you?ve been making small steps towards basing your decisions on what you want and truly believe will be most beneficial for your mental health moving forward. You have been making strides in decreasing the negative self-talk and challenging the distorted thoughts that impact your mood and your mental health. Challenging those distortions and negative self-talk messages will only continue to help improve your ability to love yourself and treat yourself kinder as a person. Sending yourself compassionate messages in times of increased stress, frustration, and anxiety will continue to help improve your resilience and ability to be cope in difficult times. You have taken steps to improve your overall self-reflection and really taken time to stop and challenge your perspective, reminding yourself that your expectations for yourself may not always be fair. This is a tough skill and you have been putting forth effort to keep trying even when the thoughts are difficult to combat. You have shown progress in your ability to recognize potential warning signs/triggers that you are feeling overwhelmed/burned out and are more proactively doing things about it to help yourself out and avoid escalating to point of crisis. Your emotion regulation skills have come such a long way and you should be very proud of this! You have made so much progress in practicing self-care, including self-care related to emotional release. You have taken steps to allow yourself to feel some of the more complex and difficult emotions without them becoming all consuming or overwhelming yourself to point of crisis. You have used taking breaks very wisely which has been helpful in allowing you to ?ride the wave? of emotion. You have also made progress in your ability to communicate openly and honestly with your supports. I know it can be hard to remember to try and see things from their point of view and work to compromise, but you are doing that hard work and I believe you will see the benefits of doing so in your relationships moving forward. Strategies for Success:: Opposite Action!!! ? do what will help you, even when your brain is saying ?this is too hard? or ?I can?t do it?, even when it feels uncomfortable, even when you are tempted to give up or fall back into unhealthy coping behaviors. Doing the hard or the anxious thing is often the healthier option. Challenge negative thought patterns by trying to look at things from the other perspective. Remember ?thoughts are thoughts, not facts?. Ask yourself ?How else can I think about this?? ?Do I have to give this thought value?? ?Is there evidence against this thought?? ?Am I being fair to myself?? ?Would I expect this of someone else??. Remember COMMUNICATE, COMMUNICATE, COMMUNICATE! Your supports won?t know how to help if you don?t let them be a part of the conversation. You don?t want it to get to the point of crisis before you reach out. Keep challenging yourself to find social activities that YOU enjoy and make YOU feel refreshed. Who and what refills your cup? Continue to make time for yourself! Self-care is cohen to maintaining progress and developing a healthier relationship with yourself! This includes sometimes doing those hard things (such as reaching out or challenging yourself to say ?no? to others at times). Remember, you are allowed and fully capable of making decisions for yourself! You can ask for input but are not required to adhere to other people?s opinions or expectations of what your goals should be. Use your in the moment calming skills you have learned. Remember, Stop and take a breather before responding when upset! Keep going to therapy! - Appointments Appointments/Referrals to Other Services:: Next appointment at [place] [id number] for psychiatry is 07/25/21. Remember to call [place] [id number] on Friday to schedule an intake appointment for individual counseling, don't keep putting this off! - Medications Home Medications: Home Medications dextroamphetamine-amphetamine [Adderall XR] 10 mg PO DAILY 05/23/21 fluoxetine [Prozac] 20 mg PO DAILY 05/23/21
== END 2021-07-06 13:11 | disposition home or self-care (01) ==
LOC: BHIOP 08:25
PROVIDERS: PCP Pediatrics; Visit Provider Psychiatry & Neurology Psychiatry
DX: F33.2 Major depressive disorder, recurrent severe without psychotic features (principal); F34.1 Dysthymic disorder; F60.3 Borderline personality disorder; F43.10 Post-traumatic stress disorder, unspecified
CPT/HCPCS: S9480; 90832; 90834; 90853